=== PATIENT | female | born 1975 | race Hispanic/Latino ===

== ENCOUNTER → 2019-06-19 | Emergency (ER) | payer MEDICAID ==
[~2019-06-19] VITALS: Ht 160 cm; Wt 79.9 kg
[~2019-06-19] MED LIST: ACETAMINOPHEN325 M2 PO; ASPIR 8181 MG PO; CATAPRES0.1 MG PO; HYDROCHLOROTH12.5 M1 PO; IBUPROFEN800 MG PO; LABETALOL HCL100 MG PO; LISINOPRIL-HCT1 EACH PO; LISINOPRIL20 MG PO; NICORETTE2 MG BUCCAL; NORVASC10 MG PO; ZESTORETIC 20-1 EACH PO
--- NOTE | 2019-06-19 03:38 | NUR ---
WAS CALLED IN TO HELP NOTIFY THE PT'S FAMILY. DR RIVAS AND I GOT THE PT'S DAUGHTER ON THE PHONE AND INFORMED HER OF HER MOTHERS CONDITION, WHICH WAS NOT HOPEFUL. THE DAUGHTER, JODIE, WAS INFORMED THAT ACCORDING TO A [facility] NEUROLOGIST THERE WAS NOTHING THAT COULD BE DONE. THE OPTIONS PRESENTED BY DR. RIVAS WERE TO LET THE PT HERE OR BE TRANSFERED TO [facility] FOR POSSIBLE ORGAN DONATION. PT'S DAUGHTER BECAME VERY HYSTERICAL ON THE OTHER END OF THE PHONE STATING THAT SHE WANTED HER MOTHER TRANSFERED TO [facility] FOR TREATMENT AND THAT SHE WANTED HER MOTHER TO BE KEPT ALIVE. AN "UNCLE", THOUGH IT WAS UNCLEAR WHETHER IT WAS THE PT OR DAUGHTER'S UNCLE, GOT ON THE PHONE AND WAS GIVEN THE INFOMATION WELL. HE ALSO CONFIRMED THAT THEIR DESIRE WAS FOR THE PT TO BE TRANSFERED. THE PT ALSO CAME IN WITH TWO FRIENDS. I INFORMED THEM THAT SHE WOULD BE TRANSFERED TO [facility] BUT THAT I COULD NOT TELL THEM ANY INFORMATION ABOUT THE PT'S MEDICAL CONDITION. THEY ASKED IF THEY COULD SEE THE PT AND I TOOK THEM TO THE PT'S ROOM TO VISIT WITH HER. WHILE THEY WERE IN THE ROOM AN RN NOTIFIED THEM OF THE PT'S CONDITION. ONE OF THE FRIENDS PROCEEDED TO CALL THE PT'S DAUGHTER AND THE DAUGHTER BECAME VERY UPSET ON THE PHONE. EVENTUALLY THE CELL PHONE WAS HANDED TO ME AND I WAS TOLD BY THE PT'S DAUGHTER THAT THE TWO FRIENDS WERE NOT TO RECEIVE ANY MORE INFORMATION ABOUT THE PT, NOR WERE THEY ALLOWED TO SEE THE PT. AT THIS POINT I QUIETLY ESCORTED THE FRIENDS TO THE QUIET ROOM WHERE THEY WAITED UNTIL THE PT WAS TRANSFERRED OUT OF THE HOSPITAL. SOON THE PT HAD LEFT [facility]IA [facility] I PHONED THE PT'S DAUGHTER TO INFORM HER THAT HER MOTHER WAS ON THE WAY TO [facility].
--- NOTE | 2019-06-19 14:09 | EKG ---
[facility] [address] [place] [address] Signed Sinus bradycardia Biatrial enlargement Left anterior fascicular block Left ventricular hypertrophy with QRS widening and repolarization abnormality Abnormal ECG When compared with ECG of 05-FEB-2017 15:05, Vent. rate has decreased BY 75 BPM Incomplete right bundle branch block is no longer present Borderline criteria for Anterior infarct are no longer present Confirmed by RISHI DAVIS DO ([id number]) on 06/19/2019 2:09:02 PM Electronically Signed By: RISHI DAVIS DO 06/19/19 1409 PATIENT NAME: MOISES LAYTON Electrocardiogram DATE OF : 79 PHYSICIAN: RISHI DAVIS DO REPORT #: [id number] REPORT IS CONFIDENTIAL AND NOT TO BE RELEASED WITHOUT AUTHORIZATION
== END ==
LOC: ED 00:23
DX: I61.9 Nontraumatic intracerebral hemorrhage, unspecified (principal); I11.0 Hypertensive heart disease with heart failure; I50.9 Heart failure, unspecified; I25.2 Old myocardial infarction; F17.200 Nicotine dependence, unspecified, uncomplicated; Z88.0 Allergy status to penicillin; Z88.2 Allergy status to sulfonamides; Z79.82 Long term (current) use of aspirin; Z79.899 Other long term (current) drug therapy
CPT/HCPCS: 31500; 36600; 70450; 71045; 80053; 81001; 82803; 85025; 93005; 93010; 94002; 96374; 96375; 99285-25; J0330; J0360; J0461; J7040; J7060